=== PATIENT | male | born 1990 | race Caucasian/White ===

== ENCOUNTER 2016-04-30 14:33 | Emergency (ER) | payer OTHER ==
[2016-04-30 14:41] VITALS: BP 142/88
--- NOTE | 2016-04-30 14:51 | ER Document Report ---
ED Medical Screen (RME) - General Stated Complaint: HAND INJURY Notes: Patient states he punched his desk on Friday injuring right hand. Was seen at urgent care today, an x-ray showed that he had a boxer's fracture. Is here for splint to be placed. I have greeted and performed a rapid initial assessment of this patient. A comprehensive ED assessment and evaluation of the patient, analysis of test results and completion of the medical decision making process will be conducted by additional ED providers. TRAVEL OUTSIDE OF THE [place] IN LAST 30 DAYS: No - Related Data Allergies/Adverse Reactions: No Known Allergies Allergy (Verified 04/30/16 14:49) Past Medical History Past Surgical History: Reports: Hx Appendectomy - Immunizations Hx Diphtheria, Pertussis, Tetanus Vaccination: No Physical Exam - Vital signs Vitals: Temp Pulse Resp BP Pulse Ox 98.4 F 70 16 142/88 H 97 04/30/16 14:39 04/30/16 14:39 04/30/16 14:39 04/30/16 14:39 04/30/16 14:39 - Extremities Notes: Swelling noted over right fourth and fifth metacarpals. Neurovascular and sensation intact. Course - Vital Signs Vital signs: Temp Pulse Resp BP Pulse Ox 98.4 F 70 16 142/88 H 97 04/30/16 14:39 04/30/16 14:39 04/30/16 14:39 04/30/16 14:39 04/30/16 14:39
--- NOTE | 2016-04-30 16:08 | ER Document Report ---
HPI - HPI Pain Level: 0 Context: 26-year-old male hit the desk on Friday in anger causing pain and deformity in the distal right fifth metacarpal. The x-ray was done at urgent care showing a boxer's fracture and he was sent to the emergency room for a splint. Associated Symptoms: None Exacerbated by: Movement Relieved by: Denies Similar symptoms previously: No Recently seen / treated by doctor: No - ROS ROS below otherwise negative: Yes Systems Reviewed and Negative: Yes All other systems reviewed and negative - CARDIOVASCULAR Cardiovascular: DENIES: Chest pain - DERM Skin Color: Normal Past Medical History - General Information source: Patient - Social History Smoking Status: Never Smoker Chew tobacco use (# tins/day): No Frequency of alcohol use: None Drug Abuse: None Lives with: Parents Family History: Reviewed & Not Pertinent Patient has suicidal ideation: No Patient has homicidal ideation: No - Medical History Medical History: Negative Renal/ Medical History: Denies: Hx Peritoneal Dialysis Past Surgical History: Reports: Hx Appendectomy - Immunizations Hx Diphtheria, Pertussis, Tetanus Vaccination: Yes Vertical Provider Document - CONSTITUTIONAL Agree With Documented VS: Yes Exam Limitations: No Limitations - INFECTION CONTROL TRAVEL OUTSIDE OF THE [place] IN LAST 30 DAYS: No - HEENT HEENT: Normocephalic - NECK Neck: Supple - RESPIRATORY O2 Sat by Pulse Oximetry: 97 - MUSCULOSKELETAL/EXTREMETIES Musculoskeletal/Extremeties: FROM, Tender - Distal fifth right metacarpal, Edema Notes: No rotational deviation, neurovascular intact distal - NEURO Level of Consciousness: Awake, Alert Motor/Sensory: No Motor Deficit, No Sensory Deficit - DERM Integumentary: Warm, Dry Course - Re-evaluation Re-evalutation: 04/30/16 16:09 X-ray shows a boxer's fracture, distal right fifth metacarpal - Vital Signs Vital signs: Temp Pulse Resp BP Pulse Ox 98.4 F 70 16 142/88 H 97 04/30/16 14:39 04/30/16 14:39 04/30/16 14:39 04/30/16 14:39 04/30/16 14:39 Procedures - Immobilization Right Hand Time completed: 16:11 Immobilizer type: Ulnar Performed by: PCT Post-Proc Neuro Vasc Exam: Normal Alignment checked and good: Yes Discharge - Discharge Clinical Impression: right fifth boxer's fracture Condition: Good Disposition: HOME, SELF-CARE Instructions: Fractured Fifth Metacarpal ([facility]), Temporary Splint ([facility]), Splint Precautions ([facility]) Additional Instructions: Keep the splint on Sling for comfort See the orthopedic doctor roman follow-up Please complete the patient satisfaction survey if you get one, and return it.. If you do not receive a survey, then you can go to the [facility] website, [email or web address] and place your comments about your very good care. Thank you very much. It was a pleasure being your medical provider today. Prescriptions: Ibuprofen [Motrin 800 mg Tablet] 800 mg PO Q8HP PRN #30 tablet PRN Reason: Referrals: ERIS MURCIA DO [ACTIVE STAFF] - Follow up tomorrow
== END 2016-04-30 16:24 | disposition home or self-care (01) ==
LOC: ER 14:33
PROC: 2W3EX1Z Immobilization of Right Hand using Splint (ICD-10-PCS; principal; 2016-04-30)
DX: S62.306A Unspecified fracture of fifth metacarpal bone, right hand, initial encounter for closed fracture (principal); X58.XXXA Exposure to other specified factors, initial encounter
CPT/HCPCS: 99283

== ENCOUNTER → 2016-04-30 | Outpatient (CLI) | payer OTHER | LOC: OD 10:53 | PROVIDERS: ATTEND Nurse Practitioner Acute Care | DX: S62.306A Unspecified fracture of fifth metacarpal bone, right hand, initial encounter for closed fracture (principal); X58.XXXA Exposure to other specified factors, initial encounter ==

== ENCOUNTER 2016-07-04 18:00 | Emergency (ER) | payer OTHER ==
[2016-07-04] MEDS ORDERED: CEPHALEXIN 500 MG CAPSULE PO ONE (19:23)
[2016-07-04] MEDS ORDERED: SULFAMETHOXAZOLE/TRIMETHOPRIM 800-160 MG TABLET PO ONE (19:23)
--- NOTE | 2016-07-04 19:31 | ER Document Report ---
ED Skin Rash/Insect Bite/Abscs - General Chief Complaint: Abscess Stated Complaint: SKIN PROBLEM Time Seen by Provider: 07/04/16 18:45 Mode of Arrival: Ambulatory Information source: Patient Notes: 6-year-old male presents to ED for abscess to left posterior neck. He states he has a history of an abscess in the same place and on his buttocks that was MRSA. He denies any fever. States that this started several days ago got much worse today. TRAVEL OUTSIDE OF THE [place] IN LAST 30 DAYS: No - HPI Patient complains to provider of: Tender/swollen area Onset: Other - Several days Onset/Duration: Gradual, Worse Quality of pain: Sharp, Throbbing Severity: Moderate Pain Level: 3 Skin Character: Abscess, Swelling, Tenderness Skin Temperature: Warm Quality of rash: Painful Identify cause: No Exacerbated by: Movement Relieved by: Denies Similar symptoms previously: Yes Recently seen / treated by doctor: Yes - Related Data Allergies/Adverse Reactions: No Known Allergies Allergy (Verified 04/30/16 14:49) Past Medical History - General Information source: Patient - Social History Smoking Status: Never Smoker Cigarette use (# per day): No Chew tobacco use (# tins/day): No Smoking Education Provided: No Frequency of alcohol use: None Drug Abuse: None Lives with: Family Family History: Reviewed & Not Pertinent Patient has suicidal ideation: No Patient has homicidal ideation: No - Past Medical History Cardiac Medical History: Reports: None Pulmonary Medical History: Reports: None EENT Medical History: Reports: None Neurological Medical History: Reports: None Endocrine Medical History: Reports: None Renal/ Medical History: Reports: None Malignancy Medical History: Reports None GI Medical History: Reports: None Musculoskeltal Medical History: Reports Hx Musculoskeletal Trauma Skin Medical History: Reports Hx Cellulitis, Reports Hx MRSA Psychiatric Medical History: Reports: None Traumatic Medical History: Reports: Hx Fractures - Right boxer fracture 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 Past Surgical History: Reports: Hx Appendectomy - Immunizations Hx Diphtheria, Pertussis, Tetanus Vaccination: Yes Review of Systems - Review of Systems Constitutional: No symptoms reported EENT: No symptoms reported Cardiovascular: No symptoms reported Respiratory: No symptoms reported Gastrointestinal: No symptoms reported Genitourinary: No symptoms reported Male Genitourinary: No symptoms reported Musculoskeletal: No symptoms reported Skin: Other - Abscess to the left posterior neck Hematologic/Lymphatic: No symptoms reported Neurological/Psychological: No symptoms reported -: Yes All other systems reviewed and negative Physical Exam - Vital signs Vitals: Temp Pulse Resp BP Pulse Ox 98.2 F 86 18 146/86 H 97 07/04/16 18:13 07/04/16 18:13 07/04/16 18:13 07/04/16 18:13 07/04/16 18:13 Interpretation: Normal - General General appearance: Appears well, Alert - HEENT Head: Normocephalic, Atraumatic Eyes: Normal Pupils: PERRL - Respiratory Respiratory status: No respiratory distress Chest status: Nontender Breath sounds: Normal Chest palpation: Normal - Cardiovascular Rhythm: Regular Heart sounds: Normal auscultation Murmur: No - Abdominal Inspection: Normal Distension: No distension Bowel sounds: Normal Tenderness: Nontender Organomegaly: No organomegaly - Back Back: Normal, Nontender - Extremities General upper extremity: Normal inspection, Nontender, Normal color, Normal ROM , Normal temperature General lower extremity: Normal inspection, Nontender, Normal color, Normal ROM , Normal temperature, Normal weight bearing. No: Justin's sign - Neurological Neuro grossly intact: Yes Cognition: Normal Orientation: AAOx4 Mary Coma Scale Eye Opening: Spontaneous Swain Coma Scale Verbal: Oriented Mary Coma Scale Motor: Obeys Commands Swain Coma Scale Total: 15 Speech: Normal Motor strength normal: LUE, RUE, LLE, RLE Sensory: Normal - Psychological Associated symptoms: Normal affect, Normal mood - Skin Skin Temperature: Warm Skin Moisture: Dry Skin Color: Normal Skin irregularity: Abscess Location of irregularity: Neck - left posterior Irregularity with: Swelling, Tenderness, Warmth, Other - Draining thick purulent foul-smelling fluid Course - Re-evaluation Re-evalutation: 07/04/16 20:21 Large amount of purulent foul-smelling drainage expressed. Did not I&D the site. Consult to Dr. Underwood he stated it did not need to be cut but the patient does need to be placed on Bactrim DS and Keflex. Patient was given Bactrim DS and Keflex in the ED and sent home with a prescription for Bactrim DS , Keflex, and [place]. - Vital Signs Vital signs: Temp Pulse Resp BP Pulse Ox 98.1 F 86 16 151/89 H 97 07/04/16 19:49 07/04/16 19:49 07/04/16 19:49 07/04/16 19:49 07/04/16 19:49 Discharge - Discharge Clinical Impression: abscess to subcutaneous neck Condition: Stable Disposition: HOME, SELF-CARE Instructions: Family Physicians / Practices Additional Instructions: ABSCESS: You have an abscess (boil). This a pus-forming infection, usually due to staph. Some boils may be left to drain on their own, but most require lancing. From the time the tender lump first appears, it may be three or four days before the abscess is ready to yina. Local heat and rest help at this stage of treatment. An antibiotic may prevent spread of the infection. Once the abscess is opened, packing may be placed into it. This is done so pus is not sealed inside by premature closure of the cavity. The packing will be removed at your follow-up visit or you may be advised to remove it yourself at home. Sometimes this packing must be replaced a few times during healing. The wound will heal with surprisingly little scar. Depending on the size and location of an abscess, healing can take one to four weeks. You may shower and wash the area around the incision site two or three times a day. Antibiotics may be prescribed, but are usually not necessary after an abscess has been drained. If you develop fever, chills, worsening pain, or increasing swelling in the area, call the doctor or return immediately. ORAL NARCOTIC MEDICATION: You have been given a prescription for pain control. This medication is a narcotic. It's best taken with food, as nausea can result if taken on an empty stomach. Don't operate machinery or drive within six hours of taking this medication. Do not combine this medicine with alcohol, or with any medication which can cause sedation (such as cold tablets or sleeping pills) unless you get permission from the physician. Narcotics tend to cause constipation. If possible, drink plenty of fluids and eat a diet high in fiber and fruits. CEPHALEXIN: The antibiotic you've been prescribed is a member of the cephalosporin class. This type of antibiotic covers a wide variety of infections, including those of the skin, lungs, and urinary tract. It's useful for staph infections. This antibiotic is slightly similar to the penicillin family. In rare cases , a person who is allergic to penicillin will also be allergic to this medication. If you have had a severe allergic reaction to penicillin, and have not taken this antibiotic since that time, notify your doctor. Antibiotics which cover many germs ("broad spectrum" antibiotics) are more likely to cause diarrhea or "yeast" infections. Women prone to vaginal yeast problems may suffer an attack after taking this antibiotic. In infants, oral thrush (white spots "stuck" on the cheek) or yeast diaper rash may result. See your doctor if these problems occur. Call at once if you develop itching, hives , shortness of breath, or lightheadedness. TRIMETHOPRIM-SULFA: You have been given a prescription for trimethoprim-sulfa (TMS, Septra, Bactrim). This is a combination antibiotic of the sulfa class, often used for urinary tract infections, middle ear infections, bronchitis, shigella intestinal infection, and Pneumocystis pneumonia. TMS is usually well-tolerated. Occasional side effects include nausea and decreased appetite. Septra is not recommended for infants less than two months of age. Do not take this medication if you have experienced severe side effects or allergy to sulfa medicine. You should stop this medicine at once and contact your physician if you develop any rash, joint pain, shortness of breath, bruising, or jaundice ( yellow color in the skin), or if you develop any other new or unusual symptoms. FOLLOW-UP CARE: Most simple abscesses will not require a follow up visit. If you had packing placed in the abscess, remove it as instructed by the physician. If you have been referred to a physician for follow-up care, call the physicians office for an appointment as you were instructed or within the next two days. If you experience worsening or a significant change in your symptoms, return to the Emergency Department at any time for re-evaluation. Prescriptions: Cephalexin Monohydrate [Keflex 500 mg Capsule] 500 mg PO QID #20 capsule Hydrocodone/Acetaminophen [[place] 5-325 mg Tablet] 1 tab PO TIDP PRN #7 tablet PRN Reason: Sulfamethoxazole/Trimethoprim [Septra-Ds 800-160 mg Tablet] 1 tab PO BID #20 tablet Forms: Elevated Blood Pressure, Return to Work
[2016-07-04 19:54] VITALS: BP 151/89
== END 2016-07-04 19:52 | disposition home or self-care (01) ==
LOC: ER 18:00
DX: L02.11 Cutaneous abscess of neck (principal); Z86.14 Personal history of Methicillin resistant Staphylococcus aureus infection
CPT/HCPCS: 87070; 87075; 87077; 87205; 99282

== ENCOUNTER → 2018-03-02 | Outpatient (CLI) | payer OTHER ==
--- NOTE | 2018-03-02 18:23 | RADIOLOGY REPORT (SQ) ---
EXAM DESCRIPTION: HAND RIGHT 3 VIEWS COMPLETED DATE/TIME: 03/02/2018 6:14 pm REASON FOR STUDY: M79.644 PAIN IN RIGHT FINGER(S) M79.644 PAIN IN RIGHT FINGER(S) COMPARISON: None. EXAM PARAMETERS: NUMBER OF VIEWS: Three views. TECHNIQUE: AP, lateral and oblique radiographic images acquired of the right hand. LIMITATIONS: None. FINDINGS: MINERALIZATION: Normal. BONES: No acute fracture or dislocation. No worrisome bone lesions. JOINTS: No effusions. SOFT TISSUES: No soft tissue swelling. No foreign body. OTHER: No other significant finding. IMPRESSION: NEGATIVE STUDY OF THE RIGHT HAND. NO RADIOGRAPHIC EVIDENCE OF ACUTE INJURY. TECHNICAL DOCUMENTATION: JOB ID: [id number] [employer]- All Rights Reserved Reading location - IP/workstation name: [email or web address]
== END ==
LOC: RAD 17:37
PROVIDERS: ATTEND Nurse Practitioner Acute Care
DX: M79.644 Pain in right finger(s) (principal)

== ENCOUNTER 2018-10-01 04:57 | Emergency (ER) | payer OTHER ==
--- NOTE | 2018-10-01 05:22 | ER Document Report ---
HPI - HPI Time Seen by Provider: 10/01/18 05:09 Pain Level: 5 Context: Patient is a 28-year-old male that comes to the emergency department for chief complaint of painful urination. He states this started yesterday. He denies discharge, bloody urine, abdominal pain, rash, fever. He is intermittently sexually active, most recently a few weeks ago without protection. He denies any diagnosed medical problems, he denies any other complaints. 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 IN LAST 30 DAYS: No - HEENT HEENT: Atraumatic, Normal ENT Exam, Normocephalic - NECK Neck: Normal Inspection - RESPIRATORY Respiratory: Breath Sounds Normal, No Respiratory Distress - CARDIOVASCULAR Cardiovascular: Regular Rate, Regular Rhythm - GI/ABDOMEN Gastrointestinal: Abdomen Soft, Abdomen Non-Tender - REPRODUCTIVE Male Genitalia: Normal Inspection. negative: Abnormal Inspection - No tenderness, swelling, rash, or concerning finding noted - BACK Back: Normal Inspection - MUSCULOSKELETAL/EXTREMETIES Musculoskeletal/Extremeties: MAEW, FROM, Non-Tender - NEURO Level of Consciousness: Awake, Alert, Appropriate Motor/Sensory: No Motor Deficit, No Sensory Deficit - DERM Integumentary: Warm, Dry, No Rash Course - Re-evaluation Re-evalutation: Patient with no current symptoms on evaluation, only complaining of dysuria. No concerning exam findings. Unremarkable vital signs. Urinalysis does suggest infection, however I suspect this is from an STD. Patient is requesting to leave instead of waiting for test results. He was given Rocephin, azithromycin, I did discuss abstinence, expectations, follow-up, and return precautions. 10/01/18 08:03 Patient was given Keflex for possible UTI, urine culture was placed. Gonorrhea and Chlamydia are actually negative, I did call and speak to patient at [phone], updated him on the results. He states he will take the antibiotics as prescribed, if this continues to occur he will follow-up with urology. He states to return if he worsens as discussed previously. - Vital Signs Vital signs: Temp Pulse Resp BP Pulse Ox 97.4 F 75 16 151/85 H 97 10/01/18 05:02 10/01/18 05:02 10/01/18 05:02 10/01/18 05:02 10/01/18 05:02 Discharge - Discharge Clinical Impression: Dysuria Condition: Stable Disposition: HOME, SELF-CARE Additional Instructions: Your testing does indicate an infection. We are covering you for a suspected STD. Avoid intercourse for 7 to 10 days. Follow up with primary care. Return for any concerning symptoms including Helping abdominal pain, vomiting, fever, or any other concerning symptoms. Prescriptions: Cephalexin Monohydrate [Keflex 500 mg Capsule] 500 mg PO BID 7 Days #14 capsule
[2018-10-01 06:08] LABS: APPEARANCE,URINE CLOUDY; BILIRUBIN,URINE NEGATIVE (NEGATIVE); COLOR,URINE YELLOW; GLUCOSE, URINE NEGATIVE (NEGATIVE); KETONES,URINE NEGATIVE (NEGATIVE); LEUKOCYTE ESTERASE,URINE LARGE (NEGATIVE); NITRITE,URINE NEGATIVE (NEGATIVE); PROTEIN,URINE 30 mg/dL (NEGATIVE); URINE SPECIFIC GRAVITY 1.011; UROBILINOGEN,URINE NEGATIVE mg/dL (<2.0)
[2018-10-01] MEDS ORDERED: CEFTRIAXONE INJ 250 MG VIAL IM ONE (06:14)
[2018-10-01] MEDS ORDERED: AZITHROMYCIN 250 MG TABLET PO ONE (06:14)
[2018-10-01] MEDS ORDERED: LIDOCAINE 1% INJ-PF (10 MG/ML) 30 ML SDV INJ ONE (06:14)
[2018-10-01 06:37] VITALS: BP 124/76
[2018-10-01 08:00] LABS: CHLAM PCR NOT DETECTED (NOT DETECT)
== END 2018-10-01 06:35 | disposition home or self-care (01) ==
LOC: ER 04:57
DX: R30.0 Dysuria (principal); Z20.2 Contact with and (suspected) exposure to infections with a predominantly sexual mode of transmission
CPT/HCPCS: 81001; 87491; 87591; J3490; J0696; 87086; 87088; 96372; 99283

== ENCOUNTER → 2019-06-03 | Outpatient (CLI) | payer BC ==
--- NOTE | 2019-06-03 14:36 | RADIOLOGY REPORT (SQ) ---
EXAM DESCRIPTION: MRA HEAD WITHOUT IMAGES COMPLETED DATE/TIME: 06/03/2019 2:20 pm REASON FOR STUDY: COITAL HEADACHE (G44.82) G44.82 HEADACHE ASSOCIATED WITH SEXUAL ACTIVITY COMPARISON: None. TECHNIQUE: Axial 3-D [id number] acquisition imaging performed through the brain in the area of t he [place] of [place]. Images reformatted using 3-D MIPS. LIMITATIONS: None. FINDINGS: SOURCE IMAGES: No unexpected findings on source images. No large masses. 3-D MIP: No aneurysm. No occlusions. No significant stenosis. OTHER: No other significant finding. IMPRESSION: NORMAL MRA OF THE [place] OF [place]. TECHNICAL DOCUMENTATION: JOB ID: [id number] [employer]- All Rights Reserved Reading location - IP/workstation name: [email or web address]
== END ==
LOC: RAD 13:49
PROVIDERS: ATTEND Nurse Practitioner Family
DX: G44.82 Headache associated with sexual activity (principal)
CPT/HCPCS: 70544

== ENCOUNTER → 2019-06-04 | Outpatient (CLI) | payer BC ==
--- NOTE | 2019-06-04 12:22 | RADIOLOGY REPORT (SQ) ---
EXAM DESCRIPTION: MRI HEAD COMBO IMAGES COMPLETED DATE/TIME: 06/04/2019 11:31 am REASON FOR STUDY: COITAL HEADACHE G44.82 HEADACHE ASSOCIATED WITH SEXUAL ACTIVITY COMPARISON: None. TECHNIQUE: Multiplanar imaging includes noncontrasted T1, T2, FLAIR, diffusion with ADC map and post gadolinium contrast T1 sequences. Images stored on PACS. CONTRAST TYPE AND DOSE: Not provided. RENAL FUNCTION: Not indicated. ACR Type II contrast agent associated with few, if any, unconfounded cases of NSF LIMITATIONS: None. FINDINGS: ANATOMY: No anomalies. Normal vascular flow voids. Pituitary fossa normal. CSF SPACES: Normal in size and contour. No hemorrhage. CEREBRUM: Sulci and gyri normal in size and contour. Normal white matter signal on FLAIR imaging. No evidence of hemorrhage, mass, or extraaxial fluid collection. No abnormal enhancement post contrast. POSTERIOR FOSSA: No signal alteration. No hemorrhage. No edema, masses, or mass effect. Internal jovana tory canals, cerebellopontine angles, mastoids normal. No enhancing lesions. No abnormal enhancement post contrast. DIFFUSION IMAGING: Negative for acute or subacute infarction. ORBITS: No masses. Globes normal. PARANASAL SINUSES: No fluid levels. Mucosa normal. OTHER: No other significant finding. IMPRESSION: NORMAL MRI OF THE BRAIN WITHOUT AND WITH INTRAVENOUS GADOLINIUM CONTRAST. EVIDENCE OF ACUTE STROKE: NO. TECHNICAL DOCUMENTATION: JOB ID: [id number] 2010 [employer]- All Rights Reserved Reading location - IP/workstation name: [email or web address]
== END ==
LOC: RAD 10:09
PROVIDERS: ATTEND Nurse Practitioner Family
DX: G44.82 Headache associated with sexual activity (principal)
CPT/HCPCS: 70553; A9576